=== PATIENT | male | born 1985 | race Caucasian/White ===

== ENCOUNTER → 2016-09-03 | Day surgery (SDC) | payer OTHER ==
[~2016-09-03] VITALS: Ht 165.1 cm; Wt 70.3 kg
== END | disposition home or self-care (01) ==
LOC: FAS 09:35
DX: K29.70 Gastritis, unspecified, without bleeding (principal); C85.91 Non-Hodgkin lymphoma, unspecified, lymph nodes of head, face, and neck; K21.9 Gastro-esophageal reflux disease without esophagitis; D64.9 Anemia, unspecified; Z80.0 Family history of malignant neoplasm of digestive organs
CPT/HCPCS: 88305; 88341; 88342; J1100; J1170; J1885; J2405; J2704; J3010